=== PATIENT | female | born 1950 | race Caucasian/White ===

== ENCOUNTER 2017-04-16 09:08 | Day surgery (SDC) | payer MEDICARE, BC ==
[~2017-04-16 09:08] MED LIST: Lactated Ringers 1,000 ML IV SCH; Sodium Chloride 0.9% 10 ML Syringe FLUSH PRN
[2017-04-16] MEDS ORDERED: Midazolam 1 MG/ML 2 ML SDV IV ONE (11:00)
[2017-04-16] MEDS ORDERED: Propofol 200 MG/20 ML SDV IV ONE (11:00)
--- NOTE | 2017-04-16 11:40 | PCM.OPNOTE ---
- General Post-Op/Procedure Note Date of Surgery/Procedure: 04/16/17 Operative Procedure(s): c scope with bx Findings: ascending colon polyp Pre Op Diagnosis: hx of colon polyps Post-Op Diagnosis: ascending colon polyp Anesthesia Technique: MAC Primary Surgeon: Triston Bush Anesthesia Provider: Daksha Majano Pathology: ascending colon polyp Complications: None Condition: Good Free Text/Narrative:: see dictation
[2017-04-16 14:12] VITALS: BP 120/63
--- NOTE | 2017-04-19 08:03 | OR ---
DATE OF OPERATION: 04/16/2017 SURGEON: Triston Bush MD PROCEDURE PERFORMED: Colonoscopy with cold forceps biopsy. PREOPERATIVE DIAGNOSIS: Personal history of colon polyps. POSTOPERATIVE DIAGNOSIS: Cecal polyp. INDICATIONS FOR PROCEDURE: This is a 66-year-old white female, who has a known history of colon polyps. It was recommended that she return for followup scope at this time. DESCRIPTION OF PROCEDURE: After an excellent IV sedation was administered, digital rectal exam was performed. No marked abnormality was noted. The flexible colonoscope was inserted and advanced to the cecum without difficulty. The prep was excellent. The following findings were noted. Ascending colon, in the area of the cecum, near a fold in the cecum, was a flat sessile appearing lesion, this was biopsied with cold biopsy forceps, and it appears that we got it all. The remainder of the ascending colon was unremarkable. The transverse colon was unremarkable. The descending colon was unremarkable. The sigmoid and rectum were unremarkable. Colon was deflated. Scope was removed. The patient tolerated procedure well and was taken to recovery room in good condition. /[id number] /MODL
== END 2017-04-16 12:25 | disposition home or self-care (01) ==
LOC: FB.SDS 09:08
PROVIDERS: ATTEND Surgery
DX: Z12.11 Encounter for screening for malignant neoplasm of colon (principal); D12.2 Benign neoplasm of ascending colon; Z86.010 Personal history of colon polyps; Z88.2 Allergy status to sulfonamides; Z79.899 Other long term (current) drug therapy; F17.210 Nicotine dependence, cigarettes, uncomplicated
CPT/HCPCS: 00811; 45380; 88305; J2250; J2704; J7120

== ENCOUNTER 2019-11-21 21:01 | Inpatient (IN) | payer MEDICARE, BC ==
[2019-11-21] MEDS ORDERED: Morphine 2 MG/ML SYRINGE IVPUSH ONE (21:21)
[2019-11-21] MEDS ORDERED: Ondansetron 4 MG/2 ML SDV IVPUSH ONE (21:21)
[2019-11-21] MEDS ORDERED: Sodium Chloride 0.9% 1,000 ML IV SCH (21:30)
[2019-11-21] MEDS: Sodium Chloride 0.9% 10 ML Syringe FLUSH PRN (21:45)
--- NOTE | 2019-11-21 22:11 | EDM.PDOC ---
ED HPI GENERAL MEDICAL PROBLEM - General Chief Complaint: General Stated Complaint: BACK/HIP PAIN Time Seen by Provider: 11/21/19 22:05 Source of Information: Reports: Patient History Limitations: Reports: No Limitations - History of Present Illness INITIAL COMMENTS - FREE TEXT/NARRATIVE: Patient presented to the ED because of left hip pain. She tripped and fell yesterday and landed on her left hip. Pain is 10/10 and worse with movements. She also have cough and cold as well ass low grade fever. There is no nausea,vomiting,diarrhea. 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 Gastrointestinal History: Reports: Colon Polyp, Other (See Below) Other Gastrointestinal History: RUQ PAIN OCCASIONALLY TO THE POINT OF DOING GALL BLADDER STUDY IN LAST 10 YEARS. 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 I Musculoskeletal History: Reports: Back Pain, Chronic Neurological History: Reports: None Psychiatric History: Reports: None Endocrine/Metabolic History: Reports: None Hematologic History: Reports: None Immunologic History: Reports: None Oncologic (Cancer) History: Reports: None Dermatologic History: Reports: Other (See Below) Other Dermatologic History: WOUND ON LEFT MEDIA CALF AFTER FALL WITH LACERATION 07/2015 - Infectious Disease History Infectious Disease History: Reports: Chicken Pox, Measles - Past Surgical History Head Surgeries/Procedures: Reports: None HEENT Surgical History: Reports: Oral Surgery Other HEENT Surgeries/Procedures: WISDOM TOOTH UNDER GENERAL IN Cardiovascular Surgical History: Reports: None Respiratory Surgical History: Reports: None GI Surgical History: Reports: Colonoscopy Female Surgical History: Reports: None Endocrine Surgical History: Reports: None Neurological Surgical History: Reports: None Musculoskeletal Surgical History: Reports: None Oncologic Surgical History: Reports: None Dermatological Surgical History: Reports: None Social & Family History - Family History Family Medical History: Noncontributory - Tobacco Use Smoking Status *Q: Current Every Day Smoker Years of Tobacco use: 45 Packs/Tins Daily: 1 - Caffeine Use Caffeine Use: Reports: Soda Other Caffeine Use: 2 CANS SODA A DAY. - Alcohol Use Days Per Week of Alcohol Use: 3 Number of Drinks Per Day: 3 Total Drinks Per Week: 9 - Recreational Drug Use Recreational Drug Use: No ED EXAM, GENERAL - Physical Exam Exam: See Below Exam Limited By: No Limitations General Appearance: Alert, No Apparent Distress Eye Exam: Bilateral Eye: PERRL Ears: Normal External Exam Nose: Normal Inspection, Normal Mucosa Throat/Mouth: Normal Inspection, Normal Lips Head: Atraumatic, Normocephalic Neck: Normal Inspection Respiratory/Chest: No Respiratory Distress, Lungs Clear Cardiovascular: Normal Peripheral Pulses, Regular Rate, Rhythm GI/Abdominal: Normal Bowel Sounds, Soft, Non-Tender, No Organomegaly Back Exam: Normal Inspection, Full Range of Motion Extremities: Other (tenderness left hip) Neurological: Alert, Oriented, CN II-XII Intact Course - Vital Signs Text/Narrative:: Labs/Xray left hip and pelvis, cxr result was discussed with patient NS 1 L bolus Zofran u mg IV x1 Morphine 2 mg IV x1 [place] is full and can't accept patient for transfer. Try tomorrow [place] [facility] might have discharges. Last Recorded V/S: Last Vital Signs Temp 37.9 C 11/21/19 21:10 Pulse 87 11/21/19 21:10 Resp 18 11/21/19 21:10 BP 184/95 H 11/21/19 21:10 Pulse Ox 97 11/21/19 21:10 - Orders/Labs/Meds Orders: Active Orders 24 hr Category Date Time Status Chest 1V Frontal [CR] Stat Exams 11/21/19 21:18 Ordered Hip Min 1V w Pelvis Lt [CR] Stat Exams 11/21/19 21:18 Ordered CORONAVIRUS COVID-19 PARI [MOLEC] Stat Lab 11/21/19 22:15 Received UA W/MICROSCOPIC [URIN] Stat Lab 11/21/19 22:35 Received Sodium Chloride 0.9% [Normal Saline] 1,000 ml Med 11/21/19 21:30 Active IV ASDIRECTED Sodium Chloride 0.9% [Saline Flush] Med 11/21/19 21:13 Active 10 ml FLUSH ASDIRECTED PRN Isolation [COMM] Routine Oth 11/21/19 22:12 Ordered Saline Lock Insert [OM.PC] Routine Oth 11/21/19 21:13 Ordered Medication Orders Sodium Chloride (Normal Saline) 1,000 mls @ 999 mls/hr IV ASDIRECTED HERNANDO Last Admin: 11/21/19 22:35 Dose: 999 mls/hr Documented by: TASHI Sodium Chloride (Saline Flush) 10 ml FLUSH ASDIRECTED PRN PRN Reason: Keep Vein Open Last Admin: 11/21/19 21:45 Dose: 10 ml Documented by: TASHI Labs: Laboratory Tests 11/21/19 11/21/19 11/21/19 Range/Units 21:25 21:25 21:25 WBC 13.0 H (4.5-12.0) X10-3/uL RBC 4.39 (3.23-5.20) x10(6)uL Hgb 14.1 (11.5-15.5) g/dL Hct 42.5 (30.0-51.3) % MCV 96.8 H (80-96) fL MCH 32.2 (27.7-33.6) pg MCHC 33.2 (32.2-35.4) g/dL RDW 13.2 (11.5-15.5) % Plt Count 225 (125-369) X10(3)uL MPV 7.4 (7.4-10.4) fL Neut % (Auto) 78.0 (46-82) % Lymph % (Auto) 11.3 L (13-37) % [place] % (Auto) 9.4 (4-12) % Eos % (Auto) 0 L (1.0-5.0) % Baso % (Auto) 1 (0-2) % Neut # (Auto) 10.0 H (1.6-8.3) # Lymph # (Auto) 1.5 (0.6-5.0) # Summit # (Auto) 1.2 (0.0-1.3) # Eos # (Auto) 0.0 (0.0-0.8) # Baso # (Auto) 0.2 (0.0-0.2) # PT 10.5 (9.0-11.1) sec INR 0.97 L (1.00-1.24) APTT 24.5 (24.4-33.2) SECONDS Sodium 139 (135-145) mmol/L Potassium 3.7 (3.5-5.3) mmol/L Chloride 102 (100-110) mmol/L Carbon Dioxide 26 (21-32) mmol/L BUN 15 (7-18) mg/dL Creatinine 1.0 (0.55-1.02) mg/dL Est Cr Clr Drug Dosing 46.65 mL/min Estimated GFR (MDRD) 55 L (>60) BUN/Creatinine Ratio 15.0 (9-20) Glucose 131 H (80-116) mg/dL Calcium 8.3 L (8.6-10.2) mg/dL Total Bilirubin 1.2 (0.1-1.3) mg/dL AST 20 (5-25) IU/L ALT 16 (12-36) U/L Alkaline Phosphatase 39 L (56-112) IU/L Total Protein 7.4 (6.0-8.0) g/dL Albumin 3.1 L (3.2-4.6) g/dL Globulin 4.3 g/dL Albumin/Globulin Ratio 0.7 Meds: Medications Generic Name Dose Route Start Last Admin Trade Name Freq PRN Reason Stop Dose Admin Sodium Chloride 1,000 mls @ 999 mls/hr 11/21/19 21:30 11/21/19 22:35 Normal Saline IV 999 mls/hr ASDIRECTED HERNANDO Administration Sodium Chloride 10 ml 11/21/19 21:13 11/21/19 21:45 Saline Flush FLUSH 10 ml ASDIRECTED PRN Administration Keep Vein Open Discontinued Medications Generic Name Dose Route Start Last Admin Trade Name Freq PRN Reason Stop Dose Admin Morphine Sulfate 2 mg 11/21/19 21:21 11/21/19 21:41 Morphine IVPUSH 11/21/19 21:22 2 mg ONETIME ONE Administration Ondansetron HCl 4 mg 11/21/19 21:21 11/21/19 21:39 Zofran IVPUSH 11/21/19 21:22 4 mg ONETIME ONE Administration Departure - Departure Time of Disposition: 22:15 Disposition: Refer to Observation Condition: Good Clinical Impression: Hip fracture, Weakness - Discharge Information Referrals: PCP,Not In Area [Primary Care Provider] - Forms: ED Department Discharge Sepsis Event Note (ED) - Evaluation Sepsis Screening Result: No Definite Risk - Focused Exam Vital Signs: Vital Signs Temp Pulse Resp BP Pulse Ox 11/21/19 21:10 37.9 C 87 18 184/95 H 97 - My Orders Last 24 Hours: My Active Orders 11/21/19 21:13 Sodium Chloride 0.9% [Saline Flush] 10 ml FLUSH ASDIRECTED PRN Saline Lock Insert [OM.PC] Routine 11/21/19 21:18 Chest 1V Frontal [CR] Stat Hip Min 1V w Pelvis Lt [CR] Stat 11/21/19 21:30 Sodium Chloride 0.9% [Normal Saline] 1,000 ml IV ASDIRECTED 11/21/19 22:12 Isolation [COMM] Routine 11/21/19 22:15 CORONAVIRUS COVID-19 PARI [MOLEC] Stat 11/21/19 22:35 UA W/MICROSCOPIC [URIN] Stat - Assessment/Plan Last 24 Hours: My Active Orders 11/21/19 21:13 Sodium Chloride 0.9% [Saline Flush] 10 ml FLUSH ASDIRECTED PRN Saline Lock Insert [OM.PC] Routine 11/21/19 21:18 Chest 1V Frontal [CR] Stat Hip Min 1V w Pelvis Lt [CR] Stat 11/21/19 21:30 Sodium Chloride 0.9% [Normal Saline] 1,000 ml IV ASDIRECTED 11/21/19 22:12 Isolation [COMM] Routine 11/21/19 22:15 CORONAVIRUS COVID-19 PARI [MOLEC] Stat 11/21/19 22:35 UA W/MICROSCOPIC [URIN] Stat
[2019-11-21] MEDS ORDERED: Ondansetron 4 MG/2 ML SDV IVPUSH PRN (23:12)
[2019-11-21] MEDS ORDERED: Acetaminophen 500 MG Tab PO PRN (23:12)
[2019-11-21] MEDS: Sodium Chloride 0.9% 1,000 ML IV SCH (23:35)
[2019-11-22] MEDS: Morphine 2 MG/ML SYRINGE IVPUSH PRN ×5 (04:07→17:52)
[2019-11-22] MEDS: Sodium Chloride 0.9% 1,000 ML IV SCH (07:25)
[2019-11-22] MEDS ORDERED: Tamoxifen 10 MG Tab PO SCH (09:00)
[2019-11-22] MEDS ORDERED: Calcium Carbonate 500 MG Tablet PO SCH (09:00)
--- NOTE | 2019-11-22 13:38 | HP ---
ADMISSION DATE: 11/21/2019 CHIEF COMPLAINT: Hip fracture. HISTORY OF PRESENT ILLNESS: Taylor is a 69-year-old woman with a history of breast cancer in remission and osteoporosis. She fell on a 2-step landing in her house and sustained a right hip fracture the evening of 11/20/2019. She had a lot of pain and all day yesterday, 11/21/2019, she laid on her bed and could not do anything. She came into the emergency room last evening and was found to have a subcapital left hip fracture. Plans for transfer to [place] for orthopedic care were put on hold because of [place] having no capacity, so she is admitted to [facility] for pain control. The patient is unclear about the details of her fall. She is not sure if she passed out, but woke up on the step landing. The patient denies ever having previous syncopal episodes, palpitations, dizziness episodes, etc. PAST MEDICAL HISTORY: She has been quite healthy. She is 1, para 1. She has had colonoscopy with tubular adenomas. She had breast cancer diagnosed in 2007, and was treated with lumpectomy and radiation with no signs of recurrence. She is on tamoxifen for this and she does have osteoporosis. MEDICATIONS: 1. Tamoxifen 20 mg daily. 2. Calcium with D 1 tab twice a day. 3. Lotrisone p.r.n. ALLERGIES: Sulfa causes rash. HABITS: Nonsmoker. She states she uses alcohol approximately 3 days a week, but not excessively. REVIEW OF SYSTEMS: General: No previous seizure, syncope, or significant weight change. SKIN: Negative for new rash. HEENT: No recent changes in hearing or vision. No sore throat or URI. No cough or purulent sputum. No chest pain or palpitations. No abdominal pain, nausea, diarrhea. No joint inflammation. She reports pain in the left hip with any movement. No skin rash. PHYSICAL EXAMINATION: GENERAL: She is alert, comfortable, and a good historian, but slightly foggy on the details of her fall. VITAL SIGNS: Blood pressure 117/68, pulse 80 and regular, respirations 16, O2 saturation 92% on room air, temperature 99.5, and weight 119 pounds 9 ounces. SKIN: Anicteric, warm and dry without rash. No visible ecchymosis over her lateral hip. HEENT: Show mouth to be dry. LUNGS: Clear at the bases. HEART: Regular without murmur or gallop. ABDOMEN: Normal bowel sounds. Soft and nontender. EXTREMITIES: Show the left lower extremity to be shortened and externally rotated and extremely painful at the hip with any motion. She has intact pedal pulses. Other extremities are normal. NEUROLOGIC: Normal with the exception of left lower extremity movement. X-RAYS: Chest x-ray is clear. Pelvis and hip x-ray shows a subcapital left hip fracture. ASSESSMENT: A 69-year-old woman with: 1. Subcapital left hip fracture. 2. Osteoporosis. 3. Breast cancer in remission on tamoxifen. PLAN: She is admitted to acute care for pain control. We will make arrangements for transfer to a higher level of care when availability of beds opens up. /[id number] JUANA/MAXIMINO
[2019-11-22 14:08] VITALS: BP 135/78; PULSE 83
[2019-11-22] MEDS: Sodium Chloride 0.9% 10 ML Syringe FLUSH PRN (17:55)
--- NOTE | 2019-11-22 19:44 | DISCH ---
DISCHARGE DATE: 11/22/2019 HISTORY: Taylor is a 69-year-old woman who was admitted last evening with a left hip fracture. She had fallen the night before on 11/20/2019 and essentially stayed at home in bed all of yesterday until she came into the emergency room last evening. She was found to have a subcapital fracture of her left hip in which she was admitted. Arrangements for transfer were made and [facility] was unable to take her and later in the day, [facility] was able to take her for orthopedics care. She is discharged for transport by ambulance to [facility]. MEDICATIONS ON DISCHARGE: 1. Tamoxifen 20 mg daily. 2. Calcium with vitamin D. A [place] is in place and her IV is saline locked. She will have follow up with her regular physician after orthopedic care is complete. /[id number] JUANA/MAXIMINO
== END 2019-11-22 18:03 | DRG 536 ==
LOC: FB.ED 21:01 → OBSVTOIN 23:18 → FB.MS 23:18
PROVIDERS: ADMIT Emergency Medicine; ATTEND Family Medicine
DX: R50.9 Fever, unspecified (principal); S72.012A Unspecified intracapsular fracture of left femur, initial encounter for closed fracture; M81.0 Age-related osteoporosis without current pathological fracture; C50.919 Malignant neoplasm of unspecified site of unspecified female breast; M54.9 Dorsalgia, unspecified; G89.29 Other chronic pain; Z20.828 Contact with and (suspected) exposure to other viral communicable diseases; Z86.010 Personal history of colon polyps; F17.210 Nicotine dependence, cigarettes, uncomplicated; W10.8XXA Fall (on) (from) other stairs and steps, initial encounter; H54.7 Unspecified visual loss; Z88.2 Allergy status to sulfonamides; Z87.01 Personal history of pneumonia (recurrent); Z79.899 Other long term (current) drug therapy; Z98.890 Other specified postprocedural states
CPT/HCPCS: 36415; 71045; 73501-LT; 80048; 80053; 81001; 85025; 85610; 85730; 87804; 87804-59; A9270-GY; J2270; J2405; J7030; U0002

== ENCOUNTER 2023-10-28 07:58 | Day surgery (SDC) | payer BC, MEDICARE, OTHER ==
[2023-10-28] MEDS ORDERED: Propofol 200 MG/20 ML SDV IV ONE (07:59)
[2023-10-28] MEDS ORDERED: Lidocaine 2% 100 MG/5 ML Syringe IVPUSH ONE (07:59)
[2023-10-28] MEDS ORDERED: Sodium Chloride 0.9% 10 ML Syringe FLUSH PRN (08:00)
[2023-10-28] MEDS: Lactated Ringers 1,000 ML IV SCH (08:35)
[2023-10-28] MEDS: Simethicone Drops 40 MG/0.6 ML 30 ML Bottle ONE (09:21)
[2023-10-28 11:38] VITALS: BP 151/79; PULSE 92
== END 2023-10-28 10:58 | disposition home or self-care (01) ==
LOC: FB.SDS 07:58
PROVIDERS: ATTEND Surgery
DX: Z12.11 Encounter for screening for malignant neoplasm of colon (principal); D12.0 Benign neoplasm of cecum; D12.6 Benign neoplasm of colon, unspecified; K57.30 Diverticulosis of large intestine without perforation or abscess without bleeding; F17.210 Nicotine dependence, cigarettes, uncomplicated; Z88.2 Allergy status to sulfonamides; Z86.010 Personal history of colon polyps; Z79.899 Other long term (current) drug therapy
CPT/HCPCS: 00811; 45385; 88305; 99100; A9270; J2704; J7120